=== PATIENT | male | born 1980 | race Caucasian/White ===

== ENCOUNTER 2016-12-30 16:51 | Emergency (ER) | payer OTHER ==
[~2016-12-30] VITALS: Ht 172.7 cm; Wt 80.6 kg
[~2016-12-30 16:51] MED LIST: DIVA500T59 PO
[2016-12-30 16:57] VITALS: TEMP 37; Ht 172.7 cm; Wt 80.6 kg
[2016-12-30] MEDS ORDERED: AMPICILLIN/SULBACTAM SOD INJ 3,000 MG in SODIUM CHLORIDE 0.9% 100ML 100 ML IV STA (17:09)
[2016-12-30] MEDS ORDERED: KETOROLAC TROMETHAMINE 30 MG/ML VIAL IV STA (17:09)
[2016-12-30] MEDS ORDERED: DEXAMETHASONE SOD INJ 10 MG/ML VIAL IV ONE (17:15)
[2016-12-30] MEDS ORDERED: SODIUM CHLORIDE 0.9% 1000ML 1,000 ML IV ONE (17:15)
[2016-12-30 17:46] LABS: BASO % 0.2 %; BASO ABS # 0.03 K/uL (0-0.2); COMPLETE YES; EOS % 0.1 %; IG% 0.6 %; LYMPH % 14.3 %; LYMPH ABS # 2.14 K/uL (1.2-3.4); MEAN CELL VOLUME 86.3 fL (80-100); MEAN CORPUSCULAR HGB CONC 33.6 g/dl (32-36); MEAN PLATELET VOLUME 9.8 fL (7.4-10.4); MONO % 12.7 %; NEUT % 72.1 %; PLATELET COUNT 187 K/uL (130-400); WHITE BLOOD COUNT 14.93 K/uL (4.8-10.8)
[2016-12-30 18:02] LABS: BUN/CREATININE RATIO 10.2 (10-20); CALCIUM 9.3 mg/dl (8.5-10.1); CREATININE 1.2 mg/dl (0.60-1.40); POTASSIUM 4.1 mmol/L (3.5-5.1)
[2016-12-30 18:05] LABS: ALB/GLOB RATIO 0.6 (0.9-2)
[2016-12-30] MEDS ORDERED: AMOX875T PO (19:23)
[2016-12-30] MEDS ORDERED: HYDR-5688 PO (19:23)
[2016-12-30] MEDS ORDERED: PRED50TA PO (19:23)
[2016-12-30] MEDS ORDERED: NORCO 5/325MG HOME PACK PO ONE (19:30)
[2016-12-30] MEDS ORDERED: AMOXICIL/CLAVU 875MG HOME PACK PO ONE (19:30)
[2016-12-30 20:12] VITALS: BP 132/82; PULSE 84; O2SAT 96
--- NOTE | 2016-12-30 23:29 | EMERGENCY ROOM VISIT NOTE ---
History First contact with patient: 17:01 Chief Complaint: SORETHROAT Stated Complaint: SORE THROAT,CAN'T SWALLOW,MIGRAINE,COLD&HOT SWEATS History of Present Illness The patient is a 36 year old male who presents to the Emergency Room with complaints of sore throat symptoms for the past 2 days. The patient went to a local urgent care clinic and this afternoon and was referred to the emergency department for further evaluation. The patient has had a fever and difficulty swallowing. He states a rapid strep was performed at the urgent care clinic and was negative. There was concern the patient may have a peritonsillar abscess. The patient considers himself usually healthy. He does have a past history of seizures, however the patient states since he stopped drinking alcohol he has not had a seizure. The patient does not have known exposure to disease. He rates his current discomfort an 8/10 and has not had anything over- the-counter today for his symptoms. Review of Systems More than 10 systems were reviewed and otherwise negative with the exception of history of present illness. Past Medical/Surgical History Seizures Family History No pertinent family history Social History Smoking Status: Never Smoker Alcohol Use: none Drug Use: none Marital Status: in relationship Occupation Status: employed Current/Historical Medications Scheduled Amoxicillin & Pot Clavulanate (Augmentin 875-125 mg), 1 TAB PO BID Prednisone (Prednisone), 50 MG PO DAILY Scheduled PRN Hydrocodone/Acetaminophen 5MG/325MG ([place] 5MG/325MG), 1 TABLET PO Q6 PRN for Pain Physical Exam Vital Signs Date Time Temp Pulse Resp B/P (MAP) Pulse Ox O2 Delivery O2 Flow Rate FiO2 12/30/16 20:12 84 18 132/82 96 Room Air 12/30/16 18:42 87 15 128/89 98 Room Air 12/30/16 16:59 98 Room Air 12/30/16 16:57 37.0 98 22 123/89 98 Room Air Pain Rating (0-10): 2.0 Physical Exam VITALS: Vitals are noted on the nurse's note and reviewed by myself. Vital signs stable. GENERAL: Well-developed, well-nourished, white male who appears ill but nontoxic. He is able to speak in a normal voice. He is handling his own secretions. No trismus. MOUTH: Mucous membranes moist. Tonsils are 4+ enlarged, exudative, and kissing at midline. There is no soft palate edema appreciated. There is no obvious abscess. Uvula is midline. No swelling under the tongue or of the face. No evidence of retropharyngeal bulging NECK: Supple without nuchal rigidity. Shoddy anterior chain lymphadenopathy HEART: Regular rate and rhythm without murmurs gallops or rubs. LUNGS: Clear to auscultation bilaterally without wheezes, rales or rhonchi. No retractions or accessory muscle use. Medical Decision & Procedures Laboratory Results 12/30/16 17:35 Red Blood Count 5.10, Mean Corpuscular Volume 86.3, Mean Corpuscular Hemoglobin 29.0, Mean Corpuscular Hemoglobin Concent 33.6, Mean Platelet Volume 9.8, Neutrophils (%) (Auto) 72.1, Lymphocytes (%) (Auto) 14.3, Monocytes (%) (Auto) 12.7, Eosinophils (%) (Auto) 0.1, Basophils (%) (Auto) 0.2, Neutrophils # (Auto ) 10.75, Lymphocytes # (Auto) 2.14, Monocytes # (Auto) 1.90, Eosinophils # (Auto ) 0.02, Basophils # (Auto) 0.03 12/30/16 17:35 Test 12/30/16 17:35 White Blood Count 14.93 K/uL (4.8-10.8) Red Blood Count 5.10 M/uL (4.7-6.1) Hemoglobin 14.8 g/dL (14.0-18.0) Hematocrit 44.0 % (42-52) Mean Corpuscular Volume 86.3 fL (80-100) Mean Corpuscular Hemoglobin 29.0 pg (25-34) Mean Corpuscular Hemoglobin Concent 33.6 g/dl (32-36) Platelet Count 187 K/uL (130-400) Mean Platelet Volume 9.8 fL (7.4-10.4) Neutrophils (%) (Auto) 72.1 % Lymphocytes (%) (Auto) 14.3 % Monocytes (%) (Auto) 12.7 % Eosinophils (%) (Auto) 0.1 % Basophils (%) (Auto) 0.2 % Neutrophils # (Auto) 10.75 K/uL (1.4-6.5) Lymphocytes # (Auto) 2.14 K/uL (1.2-3.4) Monocytes # (Auto) 1.90 K/uL (0.11-0.59) Eosinophils # (Auto) 0.02 K/uL (0-0.5) Basophils # (Auto) 0.03 K/uL (0-0.2) RDW Standard Deviation 41.4 fL (36.4-46.3) RDW Coefficient of Variation 13.0 % (11.5-14.5) Immature Granulocyte % (Auto) 0.6 % Immature Granulocyte # (Auto) 0.09 K/uL (0.00-0.02) Anion Gap 5.0 mmol/L (3-11) Est Creatinine Clear Calc Drug Dose 83.1 ml/min Estimated GFR () 90.3 Estimated GFR (Non- 77.9 BUN/Creatinine Ratio 10.2 (10-20) Calcium Level 9.3 mg/dl (8.5-10.1) Total Bilirubin 0.9 mg/dl (0.2-1) Aspartate Amino Transf (AST/SGOT) 17 U/L (15-37) Alanine Aminotransferase (ALT/SGPT) 24 U/L (12-78) Alkaline Phosphatase 87 U/L (45-117) Total Protein 8.9 gm/dl (6.4-8.2) Albumin 3.5 gm/dl (3.4-5.0) Globulin 5.4 gm/dl (2.5-4.0) Albumin/Globulin Ratio 0.6 (0.9-2) Monoscreen NEG (NEG) Medications Administered Medications (Trade) Dose Ordered Sig/Faisal Route Start Time Stop Time Status Last Admin Dose Admin Sodium Chloride 1,000 ml @ 999 mls/hr Q1H1M ONCE IV 12/30/16 17:15 12/30/16 18:15 DC 12/30/16 17:15 999 MLS/HR Dexamethasone Sodium Phosphate (Decadron Inj) 10 mg NOW ONCE IV 12/30/16 17:15 12/30/16 17:16 DC 12/30/16 17:39 10 MG Ketorolac Tromethamine (Toradol Inj) 30 mg NOW STAT IV 12/30/16 17:09 12/30/16 17:12 DC 12/30/16 17:39 30 MG Ampicillin Sodium/ Sulbactam Sodium 3000 mg/Sodium Chloride 108 ml @ 200 mls/hr NOW STAT IV 12/30/16 17:09 12/30/16 17:41 DC 12/30/16 17:38 200 MLS/HR Amoxicillin/ Clavulanate Potassium (Augmentin 875MG Home Pack) 1 homepack UD ONCE PO 12/30/16 19:30 12/30/16 19:31 DC 12/30/16 20:06 1 HOMEPACK Acetaminophen/ Hydrocodone Bitart ([place] 5/325mg Home Pack) 1 homepack UD ONCE PO 12/30/16 19:30 12/30/16 19:31 DC 12/30/16 20:07 1 HOMEPACK ED Course Physical exam and history were performed. Nursing notes, EMR, and Medication List were personally reviewed. Patient appears to have severe sore throat symptoms for the past 2 days. The patient does not appear to have an obvious peritonsillar abscess as was his clinical concern. I do agree that he has a significantly enlarged set of tonsils, but his airway is patent and he does not have trismus and is able to handle his secretions. IV access was established and labs were obtained. The patient was hydrated and medicated as above. The patient's blood work is as above and was reviewed. He does have an elevated white blood cell count of nearly 15,000. He does not have a significant anemia, bandemia, gross electrolyte imbalance. Rapid strep was negative with culture pending. Monospot was also negative. I discussed the case with Dr Stevenson (ENT), who will follow up with the patient after the weekend. The recommendation was for Augmentin and steroids. The patient will be given this as well as a short course of Vicodin. The patient thoroughly understands the importance of returning to the ER if he develops symptoms concerning for an abscess. The patient was pleased with this plan and voiced understanding. He rated his discomfort a 2/10 at the time of departure. The chart was completed utilizing [employer] Voice Recognition Software. Grammatical errors, random word insertions, pronoun errors, and incomplete sentences are an occasional consequence of this system due to software limitations, ambient noise, and hardware issues. Any formal questions or concerns about the content, text, or information contained within the body of this dictation should be directly addressed to the provider for clarification. . Medical Decision Differential diagnosis: Etiologies such as viral syndrome, tonsillitis, streptococcal pharyngitis, mononucleosis, peritonsillar abscess, retropharyngeal abscess, otitis, pneumonia , influenza, as well as others were entertained. Medication Reconcilliation Current Medication List: was personally reviewed by me Blood Pressure Screening Patient's blood pressure: Normal blood pressure Impression Primary Impression: Acute tonsillitis Departure Information Dispostion Home / Self-Care Condition GOOD Prescriptions Prednisone (Prednisone) 50 Mg Tab 50 MG PO DAILY for 4 Days, #4 TAB Prov: Jac Caldwell PA-C 12/30/16 Hydrocodone/Acetaminophen 5MG/325MG ([place] 5MG/325MG) Tab 1 TABLET PO Q6 Y for Pain, #12 TAB For Initial Treatment Prov: Jac Caldwell PA-C 12/30/16 Amoxicillin & Pot Clavulanate (Augmentin 875-125 mg) 1 Tab Tab 1 TAB PO BID for 9 Days, #18 TAB Prov: Jac Caldwell PA-C 12/30/16 Referrals Sharifa Stevenson M.D. Forms HOME CARE DOCUMENTATION FORM, IMPORTANT VISIT INFORMATION Patient Instructions [facility] Additional Instructions You were seen and evaluated today on an emergency basis only. This is not a substitute for, or an effort to provide, complete comprehensive medical care. It is not possible to recognize and treat all injuries or illnesses in a single emergency department visit. For this reason it is recommended that you followup with ENT, Dr. Stevenson's office, by telephone in the morning to arrange a follow-up visit early next week. Let the office know we spoke with Dr. Stevenson directly and that he would like to see you. For baseline pain relief you may alternate ibuprofen and acetaminophen every 4 hours for pain control. Take 600 mg ibuprofen (Advil) and then 4 hours later take 1000 mg acetaminophen (Tylenol). Do not take more than 3000 mg acetaminophen in a single day. [place] (hydrocodone/acetaminophen) 5/325 mg every 6 hours as needed for worsening breakthrough pain. Do not drink or drive on [place]. This medication will likely make you tired. Do not take [place] and Tylenol at the same time as both contain acetaminophen. [place] may cause constipation. You may wish to take an [id number] stool softener like Colace if this occurs. Amoxicillin Clavulanate (Augmentin) 875mg: Take one pill twice daily for 10 days for your infection. All antibiotics can cause diarrhea. If this occurs and you feel worse or it does not resolve in 1-2 days follow up with your doctor or return to the Emergency Department as this could be signs of serious underlying problems. Any medication can cause an allergic reaction, stop the pills immediately and return to the ER for rash, hives, breathing difficulties, or swelling. Take prednisone as prescribed If you develop difficulty talking, difficulty with drooling, or inability to swallow please return to the ER immediately. You are welcome to return to the emergency department anytime with new, worsening, or concerning symptoms.
== END 2016-12-30 20:16 | disposition home or self-care (01) ==
LOC: C.EDB 16:53 → C.EDC 20:16
DX: J03.90 Acute tonsillitis, unspecified (principal); G40.909 Epilepsy, unspecified, not intractable, without status epilepticus